=== PATIENT | male | born 1980 | race Two or more races ===

== ENCOUNTER 2018-03-02 14:46 | Outpatient (CLI) | payer OTHER ==
[~2018-03-02 14:46] MED LIST: HYZAAR 100/25 T1 TAB PO; OMEGA-31000 MG PO; VITAMIN C100 M1 PO
== END 2018-03-02 14:58 | disposition home or self-care (01) ==
LOC: RAD 501 14:46
DX: M25.531 Pain in right wrist (principal)

== ENCOUNTER → 2018-06-29 | Outpatient (CLI) | payer OTHER | END | disposition home or self-care (01) | LOC: RAD 501 13:10 | DX: M25.521 Pain in right elbow (principal) ==

== ENCOUNTER 2023-02-04 13:03 | Emergency (ER) | payer OTHER ==
[~2023-02-04] VITALS: Ht 172.7 cm; Wt 106.6 kg
== END 2023-02-04 18:39 | disposition home or self-care (01) ==
LOC: ER
PROVIDERS: General Practice
DX: R07.89 Other chest pain (principal); I10 Essential (primary) hypertension; Z88.6 Allergy status to analgesic agent

== ENCOUNTER 2023-02-04 14:44 | Outpatient (CLI) | payer OTHER | END 2023-02-04 14:52 | disposition home or self-care (01) | LOC: RAD 14:44 | PROVIDERS: ATTEND Orthopaedic Surgery | DX: Z76.89 Persons encountering health services in other specified circumstances (principal) ==